=== PATIENT | male | born 1980 | race Two or more races ===

== ENCOUNTER 2016-11-04 20:28 | Inpatient (IN) | payer SELFPAY ==
--- NOTE | ~2016-11-04 | HP ---
History And Physical [place] [id number] [facility] [place]. [address] NAME: CLAUDIO MALLORY : 78 STATUS : ADM IN [facility]#: [id number] AGE: 36 ADM/REG DATE : 11/04/16 MR#: [id number] REPORT SERV DATE: 11/05/16 DICTATED BY: PRITI CRAIG DATE: 11/04/16 REPORT STATUS : Draft TRANSCRIBED BY: MODL DATE: 11/04/16 DATE OF ADMISSION: 11/04/2016 IDENTIFYING DATA: A 36-year-old male. CHIEF COMPLAINT: Jaw pain. HISTORY OF PRESENT ILLNESS: This history of present illness is obtained by talking with the patient. He has a girlfriend and an another friend at bedside. I also spoke with the ER provider on the phone from [facility] today. The patient states he began to have pain in his left jaw on 11/01/2016. By Thursday, he had increased pain, increased swelling on that left-sided jaw, fevers up to 101 to 102 with chills. Only pain on the left side, no pain on the right. He went to the emergency room at [facility] in [facility] on Thursday. He reports he was given a prescription for some antibiotic pill and some hydrocodone tablets. He states the pain got worse. He went back to the emergency room again today and they referred him directly to [facility]. [facility] doctor called and told me that the patient had trismus, could not open his jaw and that he had a CT scan there showing caries and some submandibular lymphadenopathy on the left, but no distinct abscess. They had spoken with the oral surgeon, Dr. Eulogio Aguilar, who agreed to see the patient here in consultation. The patient's white count was 12,000, sedimentation rate was 29, C-reactive protein was 7.3. The patient states he was feeling fine prior to Thursday when this hit him. He states that in addition to the fever and the left jaw pain in the left mandible, he has also had pain in his elbows and knees and in the scrotum mostly in the right side. He works milking cattle. He has never had anything like this before. He states he is up-to-date on his tetanus shot after he had an injury to his right foot that is described below about four years ago. Notes from [facility] indicate, they gave him Solu-Medrol 125 mg, clindamycin 600 mg IV Valium 5 mg IV, morphine 4 mg IV, and Tylenol 1000 mg p.o. REVIEW OF SYSTEMS: He has the bilateral knee and elbow pain, some chest wall soreness, and tenderness in the right scrotum, mild sore throat. He states he feels hungry. He had diarrhea two days ago. He had questionable dysuria. He has had headaches, but it is mostly in that left jaw. He denies cough, shortness of breath, nausea and vomiting, bright red blood per rectum, melena, peripheral edema, rash. ALLERGIES: NO KNOWN DRUG ALLERGIES. PAST MEDICAL HISTORY: He denies any history of diabetes, hypertension, asthma, heart disease, stroke, seizure, biliary tract disease, liver disease, renal disease, thyroid disease, or cancer. He thinks he may have had a stomach ulcer years ago or reflux. He had a previous infection History And Physical [address] [address] NAME: CLAUDIO MALLORY : 78 STATUS : ADM IN [facility]#: [id number] AGE: 36 ADM/REG DATE : 11/04/16 MR#: [id number] REPORT SERV DATE: 11/05/16 DICTATED BY: PRITI CRAIG DATE: 11/04/16 REPORT STATUS : Draft TRANSCRIBED BY: LAVONNE DATE: 11/04/16 to the right foot a few years ago where he had a needle infection where he got stuck with a needle in the top of that right foot. Had incision and drainage, reportedly some kind a staph infection. He had a tetanus booster at that time. HOME MEDICATIONS: He does not know the names, but it is the antibiotic and hydrocodone, it was given by [facility], no other medicines. PAST SURGICAL HISTORY: The right foot incision and drainage several years ago. SOCIAL HISTORY: He smokes about three cigarettes per day. He denies alcohol intake. He milks cows. FAMILY HISTORY: He does not really know much about the health of his parents. He does not think they have any serious problems except one of them came to the [facility] to have some septal surgery on the nose. Siblings are reportedly healthy. DIAGNOSTIC DATA: Typed report of the CT scan maxillofacial with IV contrast, done at [facility] this evening at 1507 hours, their interpretation was third mandibular molar teeth bilaterally with caries involving the second mandibular molars to a lesser degree. No osteomyelitis. No abscess. Several reactive lymph nodes in the left mandibular region and extensive dental caries. His white blood count 12, hemoglobin 14.4, platelets of 198,000. Sodium 141, potassium 3.6, chloride 104, CO2 of 29, BUN 19.8, creatinine 0.8. Sedimentation rate 29. C-reactive protein was 7.3. PHYSICAL EXAMINATION: VITAL SIGNS: Temp 98.7, pulse 53, respirations 18, blood pressure 132/72, O2 saturation 97% on room air. GENERAL: Well-developed, thin male who appears in moderate pain. HEENT: The head is atraumatic. Pupils are equal, round, and reactive to light. Extraocular motions are intact. No scleral icterus noted. Ear, externally unremarkable. No inflammatory changes noted and hearing grossly normal. Nose, noninflamed externally. Septum midline. Nares patent. Mouth, he has trismus where he could only open his jaw, maybe 5 mm between the incisors. By palpation and what I can visualize, I do not see any obvious erythema or induration nor do I palpate induration along the external left mandible. I cannot feel the internal left mandible because he cannot open his teeth enough. He has pain when I palpate along that left mandible internally and externally. There is minimal erythema, minimal induration along the left mandible externally and submandibular nodes are very tender. The right side of the face and neck is normal on exam. NECK: As described above. Carotids have good pulses. No bruits. No lymphadenopathy noted other than the submandibular on as mentioned above. LUNGS: Clear. Good air flow. No wheezes, no rhonchi. Normal respiratory effort. HEART: Regular without gallop, click, murmur, or rub. ABDOMEN: Bowel sounds positive. Soft, nontender. No masses. No organomegaly. EXTREMITIES: Warm. Good pulses. No clubbing, no cyanosis, no edema. SKIN: No actively inflamed skin or joints. Specifically, I looked at his knees, elbows, History And Physical [address] [place]. [place] [address] NAME: CLAUDIO MALLORY : [birth year] STATUS : ADM IN PAT#: [id number] AGE: 36 ADM/REG DATE : 11/04/16 MR#: [id number] REPORT SERV DATE: 11/05/16 DICTATED BY: PRITI CRAIG DATE: 11/04/16 REPORT STATUS : Draft TRANSCRIBED BY: LAVONNE DATE: 11/04/16 ankles, wrists. He has normoactive and passive range of motion. GENITAL: Reveals uncircumcised male. No penile lesions palpated or visualized. No testicular mass is palpable. No induration in the scrotum. He is very tender in the base of the right testicle. There is no inguinal adenopathy. No hernia is noted. No penile discharge noted. NEUROLOGIC: He is alert. He is oriented. He is cooperative with grossly normal mentation and speech and motor and cranial nerves II through XII. No Babinski or clonus. ASSESSMENT: 1. Acute left mandibular pain with Trismus. White count of 12,000, fever with caries and enlarged left submandibular lymph node, most consistent with early facial cellulitis. No obvious abscess noted. 2. Diffuse joint pains, it is probably reactive to acute left mandibular pain with Trismus. 3. Right testicular pain of unclear etiology. Could be an epididymitis, although the pain is primarily at the base of the testicle, not up on the top of it. 4. See past medical history. PLAN: 1. Admit to the hospital. 2. We will place him on Zosyn. We will consult Oral Maxillofacial Surgery. Keep him n.p.o. after midnight. Pain medicines p.r.n. Check urinalysis. Girlfriend updated at the bedside with the patient's permission. RSG/LAVONNE Priti Craig M.D. / [id number] CC: Priya Rowan D.D.S.
--- NOTE | ~2016-11-04 | DS ---
Discharge Summary [place] [id number] [facility] [place]. [address] NAME: CLAUDIO MALLORY : 78 STATUS : DIS IN PAT#: [id number] AGE: 36 ADM/REG DATE : 11/04/16 MR#: [id number] REPORT SERV DATE: 11/07/16 DICTATED BY: DATE: REPORT STATUS : Draft TRANSCRIBED BY: MODL DATE: 11/06/16 ADMISSION DATE: 11/04/2016 DISCHARGE DATE: 11/06/2016 DISCHARGE DIAGNOSES: 1. Left mandibular pain. 2. Diffuse joint pain. 3. Status post tooth extraction #17 and #18. CONSULTATION: Dr. Aguilar from Dentistry. PROCEDURES AND IMAGIN. 11/05/2016, surgical extraction of tooth #17 and #18. 2. 11/04/2006, maxillofacial CT with IV contrast from [facility] showed large round areas of radiotranslucency in the third mandibular molar teeth bilaterally. Carries also involved the second mandibular molars to a lesser degree. No osteomyelitis was demonstrated. No loculated fluid collection to suggest soft-tissue abscess. Several reactive nodes were noted in the left submandibular region. Impression was extensive dental caries. HOSPITAL COURSE: The patient was transferred from [facility] to have surgery from Dr. Aguilar. The patient tolerated the procedure well. Please see record of operation from 11/05/[address] Aguilar and complete details of the patient's admission by Dr. Craig. The patient was admitted by Dr. Craig for initial workup and surgical extraction of his teeth. The patient has had an uncomplicated hospital course. The patient received two doses of Zosyn during his stay and then was transitioned to p.o. Augmentin. The patient has had no reaction to the Augmentin. The patient has had significant decrease in his submandibular swelling overnight. The patient's diffuse joint pain has also been resolved status post tooth extraction. The patient has only required one naproxen and two Percocet postop. The patient's white count has continued to remain 9.4, hemoglobin is 13.3, hematocrit is 38.2. Other labs are well within normal limits. PHYSICAL EXAMINATION: VITAL SIGNS: The patient is a 36-year-old male, whose blood pressure is 118/63, respirations are 15, temperature is 98.6, and heart rate is 52. HEENT: Head is atraumatic and normocephalic. Pupils are equal, round, reactive to light and accommodation. Sclerae are clear and nonicteric. The patient has gauze in his mouth. NECK: Neck is supple with no obvious thyromegaly. The patient still has mild submandibular swelling of his left mandibular lymph node, greatly reduced from yesterday. Neck veins are flat. CARDIAC: The patient has S1 and S2 with no obvious murmurs, rubs, or gallops. LUNGS: Lungs are clear to auscultation with normal respiratory effort. GI: Abdomen is soft and nontender. Active bowel sound x4 quadrants. No significant organomegaly. EXTREMITIES: No significant edema, clubbing, or cyanosis. Dorsalis pedis and posterior tibial pulses are palpable bilaterally. Discharge Summary [address] [place]. [address] NAME: CLAUDIO MALLORY : 78 STATUS : DIS IN PAT#: [id number] AGE: 36 ADM/REG DATE : 11/04/16 MR#: [id number] REPORT SERV DATE: 11/07/16 DICTATED BY: DATE: REPORT STATUS : Draft TRANSCRIBED BY: MODL DATE: 11/06/16 MUSCULOSKELETAL: Moves all extremities x4. He is ambulatory without assistance. No difficulty with balance. SKIN: Skin is warm and dry with normal color and turgor. NEUROPSYCH: The patient is alert and oriented x4, pleasant, cooperative. Cranial nerves II through XII are grossly intact. Affect is bright. DISCHARGE DIET: The patient will be discharged with a mechanical soft diet. HOME MEDICATIONS: The patient will be going home with Augmentin 875 mg twice a day for ten days. He will also be having a prescription for naproxen 500 mg p.o. b.i.d. p.r.n. pain, the patient is to take with food. The patient will also be going home with Percocet 10/325 p.o. q.4 hours p.r.n. x3 days. ALLERGIES: THE PATIENT HAS NO KNOWN DRUG ALLERGIES. DISCHARGE INSTRUCTIONS: The patient is to follow up with Dr. Aguilar if he is to have any unusual tooth pain or bleeding. Should the patient have any allergic reaction to any of his medications, he is to come to the ER. These instructions have also been reviewed with his girlfriend and both the patient and girlfriend verbalized understanding of instructions. The patient will be given discharge instructions for mouth care upon discharge. Approximately 20 minutes has been spent coordinating discharge care of this patient and including [id number] encounter and summarization of the discharge. SHERITA/LAVONNE Balbina Josue NP / [id number] CC: Eve Lloyd M.D.
--- NOTE | ~2016-11-04 | OP ---
Record Of Operation [facility] [address] [address] NAME: CLAUDIO MALLORY : [birth year] STATUS : ADM IN [facility]#: [id number] AGE: 36 ADM/REG DATE : 11/04/16 MR#: [id number] REPORT SERV DATE: 11/05/16 DICTATED BY: EULOGIO AGUILAR DATE: 11/05/16 REPORT STATUS : Draft TRANSCRIBED BY: MODTasha DATE: 11/05/16 DATE OF PROCEDURE: 11/05/2016 PREOPERATIVE DIAGNOSIS: Gross caries/abscess #17 and #18. POSTOPERATIVE DIAGNOSIS: Gross caries/abscess #17 and #18. PROCEDURE: Surgical extraction of 17 and 18. ANESTHESIA: General. ESTIMATED BLOOD LOSS: Less than 5 mL. COMPLICATIONS: None. DESCRIPTION OF PROCEDURE: On 11/05/2016, the patient was taken to the operating room and placed under satisfactory orotracheal anesthesia. Local anesthesia was administered in the surgical sites. The #15 blade was used to make an incision along the buccal aspect of tooth #17 and #18. Buccal flap was reflected with a [place] elevator. Buccal bone was removed with a reyes drill and a round nolan, and the tooth was elevated from the bony crypt with straight elevator and universal forceps. The area was thoroughly irrigated with normal saline, suctioned free of debris, and closed with two 3-0 gut sutures. Nasopharynx and hypopharynx were suctioned free of debris. The patient was awakened and taken to the recovery room having tolerated the procedure satisfactorily. /LAVONNE Eulogio Aguilar D.D.S. / [id number] CC: Eve Lloyd M.D.
[2016-11-05 02:07] LABS: ASCORBIC ACID (UR NOT ORDER) NEG (NEG); BILIRUBIN, URINE NEGATIVE (NEG); KETONE, URINE 20 MG/DL (NEG); LEUKOCYTE ESTERASE(NOT OR NEG (NEG); WBC (NOT ORDERED) (RFLEX) < 1 (0-5)
[2016-11-05 05:42] LABS: BASOPHILS 0 %; EOSINOPHILS 0 %; HEMATOCRIT 40.3 % (40.0-51.0); HEMOGLOBIN 13.8 g/dL (13.6-17.8); IMMATURE GRANULOCYTES 0.1 %; IMMATURE GRANULOCYTES ABSOLUTE 0.01 10/3/uL (0.0-0.11); LYMPHOCYTES 21.5 %; LYMPHOCYTES ABSOLUTE 2.04 10/3/uL (0.67-4.30); MEAN CORPUS HGB CONC 34.2 g/dL (32.0-36.0); MEAN CORPUSCULAR HEMOGLOB 30.3 pg (26.0-34.0); MEAN CORPUSCULAR VOLUME 88.6 fL (80-100); MEAN PLATELET VOLUME 10.2 fL (9.2-13.0); MONOCYTES 11.1 %; MONOCYTES ABSOLUTE 1.05 10/3/uL (0.21-1.20); NEUTROPHILS 67.3 %; NEUTROPHILS ABSOLUTE 6.38 10/3/uL (2.02-8.40); PLATELET COUNT 202 10/3/uL (150-400); RBC DISTRIBUTION WIDTH 13.7 % (12.0-16.0); RED CELL COUNT 4.55 10/6/uL (4.7-6.1); WHITE BLOOD CELLS 9.5 10/3/uL (4.5-10.5)
[2016-11-05 05:46] LABS: MANUAL DIFF NO %
[2016-11-05 05:47] LABS: INTERNATIONAL NORMAL RATI 1.1 UNITS (-); PARTIAL THROMBO TIME 33.4 SEC (22.5-37.2); PROTIME (NOT ORD) 14.4 SEC (12.0-14.5)
[2016-11-05 05:57] LABS: BUN (BLOOD UREA NITROGEN) 15 MG/DL (6-23); CALCIUM, SERUM 9.4 MG/DL (8.5-10.4); CHLORIDE, SERUM 108 MMOL/L (96-112); CO2 (CARBON DIOXIDE) 27 MMOL/L (24-34); CREATININE 0.71 MG/DL (0.70-1.30); GFR AFRICAN AMERICAN 139 ML/MIN (>=60); GFR NON AFRICAN AMERICAN 120 ML/MIN (>=60); GLUCOSE, SERUM 100 MG/DL (60-99); POTASSIUM, SERUM 4.1 MMOL/L (3.5-5.3); SODIUM, SERUM 142 MMOL/L (135-148)
[2016-11-06 07:21] LABS: BASOPHILS 0 %; EOSINOPHILS 0 %; HEMATOCRIT 38.2 % (40.0-51.0); HEMOGLOBIN 13.3 g/dL (13.6-17.8); IMMATURE GRANULOCYTES 0.1 %; IMMATURE GRANULOCYTES ABSOLUTE 0.01 10/3/uL (0.0-0.11); LYMPHOCYTES ABSOLUTE 3.21 10/3/uL (0.67-4.30); MANUAL DIFF NO %; MEAN CORPUS HGB CONC 34.8 g/dL (32.0-36.0); MEAN CORPUSCULAR HEMOGLOB 30.1 pg (26.0-34.0); MEAN CORPUSCULAR VOLUME 86.4 fL (80-100); MEAN PLATELET VOLUME 9.8 fL (9.2-13.0); MONOCYTES 8.8 %; MONOCYTES ABSOLUTE 0.83 10/3/uL (0.21-1.20); NEUTROPHILS 57.1 %; NEUTROPHILS ABSOLUTE 5.39 10/3/uL (2.02-8.40); PLATELET COUNT 186 10/3/uL (150-400); RBC DISTRIBUTION WIDTH 13.8 % (12.0-16.0); RED CELL COUNT 4.42 10/6/uL (4.7-6.1); WHITE BLOOD CELLS 9.4 10/3/uL (4.5-10.5)
[2016-11-06 07:34] LABS: BUN (BLOOD UREA NITROGEN) 18 MG/DL (6-23); CALCIUM, SERUM 9.3 MG/DL (8.5-10.4); CHLORIDE, SERUM 106 MMOL/L (96-112); CO2 (CARBON DIOXIDE) 28 MMOL/L (24-34); CREATININE 0.66 MG/DL (0.70-1.30); GFR AFRICAN AMERICAN 143 ML/MIN (>=60); GFR NON AFRICAN AMERICAN 124 ML/MIN (>=60); GLUCOSE, SERUM 88 MG/DL (60-99); POTASSIUM, SERUM 3.8 MMOL/L (3.5-5.3); SODIUM, SERUM 143 MMOL/L (135-148)
[2016-11-06] MEDS ORDERED: AUG875 PO (08:46)
[2016-11-06] MEDS ORDERED: NAP500 PO (08:46)
[2016-11-06] MEDS ORDERED: ENDOCET1 TA3 PO (08:47)
== END 2016-11-06 12:33 | disposition home or self-care (01) | DRG 158 ==
LOC: 4SO 20:28
PROVIDERS: Hospitalist; Nurse Practitioner Family; Oral & Maxillofacial Surgery
PROC: 0CTX0Z1 Resection of Lower Tooth, Multiple, Open Approach (ICD-10-PCS; principal; 2016-11-05 11:45)
DX: K04.7 Periapical abscess without sinus (principal); L03.211 Cellulitis of face; K02.9 Dental caries, unspecified; Z72.0 Tobacco use; R25.2 Cramp and spasm; R59.0 Localized enlarged lymph nodes
CPT/HCPCS: 80048; 81001; 83735; 85025; 85610; 85730; A9270-GY; J2250; J2270; J2405; J2543; J2710; J3010